=== PATIENT | male | born 1980 | race Two or more races ===

== ENCOUNTER 2018-07-12 11:52 | Emergency (ER) | payer BC, OTHER ==
--- NOTE | 2018-07-12 13:12 | ER Document Report ---
HPI - HPI Patient complains to provider of: bilateral ear pain and fullness Onset: Other - friday Pain Level: 4 Context: 38 yo male c/o left ear pain especially with movement since friday, now the right ear hurts. No recent URI. No fever. Associated Symptoms: None Exacerbated by: Denies Relieved by: Denies Similar symptoms previously: No Recently seen / treated by doctor: No - ROS ROS below otherwise negative: Yes Systems Reviewed and Negative: Yes All other systems reviewed and negative - CONSTITUTIONAL Constitutional: DENIES: Fever - hasnt checked, Chills - EENT EENT: REPORTS: Ear Pain. DENIES: Sore Throat, Eye problems - NEURO Neurology: REPORTS: Headache. DENIES: Weakness, Vision blurred, Dizzinesss / Vertigo - CARDIOVASCULAR Cardiovascular: DENIES: Chest pain - RESPIRATORY Respiratory: DENIES: Trouble Breathing, Coughing - GASTROINTESTINAL Gastrointestinal: DENIES: Abdominal Pain, Black / Bloody Stools - URINARY Urinary: DENIES: Dysuria, Urgency, Frequency - MUSCULOSKELETAL Musculoskeletal: DENIES: Extremity pain Past Medical History - General Information source: Parent - Social History Smoking Status: Unknown if Ever Smoked Chew tobacco use (# tins/day): No Frequency of alcohol use: Occasional Drug Abuse: None Lives with: Family Family History: Reviewed & Not Pertinent Patient has suicidal ideation: No Patient has homicidal ideation: No - Medical History Medical History: Negative Renal/ Medical History: Denies: Hx Peritoneal Dialysis Past Surgical History: Reports: Hx Cholecystectomy Vertical Provider Document - CONSTITUTIONAL Agree With Documented VS: Yes Exam Limitations: No Limitations General Appearance: No Apparent Distress - INFECTION CONTROL TRAVEL OUTSIDE OF THE [place] IN LAST 30 DAYS: No - HEENT HEENT: negative: Pharyngeal Erythema Notes: bilateral ear pain with pinna and tragus movement. both canals red with mild swelling, tenderness, wet ceruman, and possible exudate. mastoids non tender. No auricular nodes - NECK Neck: Supple. negative: Lymphadenopathy-Left, Lymphadenopathy-Right Course - Re-evaluation Re-evalutation: 07/12/18 ted inserted into canals and ciprodex used/ted expanded - Vital Signs Vital signs: Temp Pulse Resp BP Pulse Ox 98.4 F 66 14 136/96 H 96 07/12/18 12:07 07/12/18 12:07 07/12/18 12:07 07/12/18 12:07 07/12/18 12:07 Discharge - Discharge Clinical Impression: Bilateral otitis externa, Cerumen and exudate bilateral canals Condition: Good Disposition: HOME, SELF-CARE Instructions: Ciprofloxacin ([facility]), Using Ear Drops with a Wick ([facility]), Otitis Externa ([facility]), Steroid Medication Additional Instructions: Ear recheck in 2 days, return sooner if worse to the ER if external ears swell, increased pain, red skin, fever Referral to ears nose and throat doctor 4 drops of the eardrops in both of the ears twice a day for a week Warm compress to your ears Referrals: BRIANDA TREVIÑO DO [ASSOCIATE] - Follow up as needed
[2018-07-12] MEDS ORDERED: CIPROFLOXACIN HCL/DEXAMETH OTIC DROP 7.5 ML AU ONE (13:15)
[2018-07-12 14:02] VITALS: BP 146/102
== END 2018-07-12 14:03 | disposition home or self-care (01) ==
LOC: ER 11:52
DX: H60.93 Unspecified otitis externa, bilateral (principal); H61.23 Impacted cerumen, bilateral; H92.03 Otalgia, bilateral
CPT/HCPCS: 99282; J3490

== ENCOUNTER 2020-02-21 08:04 | Emergency (ER) | payer OTHER, BC ==
[2020-02-21 08:11] VITALS: BP 152/101
--- NOTE | 2020-02-21 08:57 | RADIOLOGY REPORT (SQ) ---
EXAM DESCRIPTION: ANKLE LEFT COMPLETE IMAGES COMPLETED DATE/TIME: 02/21/2020 8:45 am REASON FOR STUDY: twisted left ankle COMPARISON: None. NUMBER OF VIEWS: Three views. TECHNIQUE: AP, lateral, and oblique radiographic images acquired of the left ankle. LIMITATIONS: None. FINDINGS: MINERALIZATION: Normal. BONES: No acute fracture or dislocation. No worrisome bone lesions. JOINTS: No effusions. SOFT TISSUES: No soft tissue swelling. No foreign body. OTHER: No other significant finding. IMPRESSION: NEGATIVE STUDY OF THE LEFT ANKLE. NO RADIOGRAPHIC EVIDENCE OF ACUTE INJURY. TECHNICAL DOCUMENTATION: JOB ID: [id number] 2010 [employer]- All Rights Reserved Reading location - IP/workstation name: [email or web address]
--- NOTE | 2020-02-21 08:57 | RADIOLOGY REPORT (SQ) ---
EXAM DESCRIPTION: FOOT LEFT COMPLETE IMAGES COMPLETED DATE/TIME: 02/21/2020 8:45 am REASON FOR STUDY: pain to left foot COMPARISON: None. NUMBER OF VIEWS: Three views. TECHNIQUE: AP, lateral and oblique radiographic images acquired of the left foot. LIMITATIONS: None. FINDINGS: MINERALIZATION: Normal. BONES: No acute fracture or dislocation. No worrisome bone lesions. JOINTS: No effusions. SOFT TISSUES: No soft tissue swelling. No foreign body. OTHER: No other significant finding. IMPRESSION: NEGATIVE STUDY OF THE LEFT FOOT. NO RADIOGRAPHIC EVIDENCE OF ACUTE INJURY. TECHNICAL DOCUMENTATION: JOB ID: [id number] 2010 [employer]- All Rights Reserved Reading location - IP/workstation name: [email or web address]
[2020-02-21] MEDS ORDERED: IBUPROFEN 800 MG TABLET PO ONE (09:42)
--- NOTE | 2020-02-21 09:49 | ER Document Report ---
Entered by SALLIE AVERY SCRIBE 02/21/20 0848 Acting as scribe for:JL LOCK MD ED General - General Chief Complaint: Ankle Injury Stated Complaint: FOOT PAIN Information source: Patient Notes: This 40-year-old male presents to the emergency department complaining of left ankle pain that began yesterday. 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 Patient states that he was able to bear weight on the foot yesterday but today could not secondary to pain. Patient states that yesterday he tried icing and elevation. Patient states that he wanted to come to the emergency department just to be sure he did not "break a tendon". Patient explains the pain as located on his heel, 4/5 and worse with pressing his toes on the ground. Patient mentions chronic back pain. Patient denies chest pain, fever, chills and cough. Patient mentions that he has a pain in his right heel that he has been seeing a doctor at the [facility] for but states that it is not the same pain as in the left heel today. TRAVEL OUTSIDE OF THE [place] IN LAST 30 DAYS: No - Related Data Allergies/Adverse Reactions: No Known Allergies Allergy (Verified 07/12/18 11:56) Past Medical History - General Information source: Patient - Social History Smoking Status: Never Smoker Cigarette use (# per day): No Chew tobacco use (# tins/day): No Frequency of alcohol use: Rare Drug Abuse: None Lives with: Family Family History: Reviewed & Not Pertinent Patient has homicidal ideation: No - Medical History Medical History: Negative Past Surgical History: Reports: Hx Cholecystectomy Review of Systems - Review of Systems Constitutional: See HPI. denies: Chills, Fever EENT: No symptoms reported Cardiovascular: See HPI. denies: Chest pain Respiratory: See HPI. denies: Cough Gastrointestinal: No symptoms reported Genitourinary: No symptoms reported Male Genitourinary: No symptoms reported Musculoskeletal: See HPI, Back pain - Chronic, Other - left ankle pain Skin: No symptoms reported Hematologic/Lymphatic: No symptoms reported Neurological/Psychological: No symptoms reported -: Yes All other systems reviewed and negative Physical Exam - Vital signs Vitals: Temp 97.6 F 02/21/20 08:04 - Notes Notes: Physical Exam: General: Alert, appears well. HEENT: Normocephalic. Atraumatic. PERRL. Extraocular movements intact. Oropharynx clear. Neck: Supple. Non-tender. Respiratory: No respiratory distress. Clear and equal breath sounds bilaterally. Cardiovascular: Regular rate and rhythm. Abdominal: Obese. Non-tender. No distension. Normal Bowel Sounds. Back: No gross abnormalities. Extremities: Moves all four extremities. Upper extremities: Normal inspection. Normal ROM. Lower extremities: Plantar heel tenderness to palpation. No edema. Normal ROM. Neurological: Normal cognition. AAOx4. Normal speech. Psychological: Normal affect. Normal Mood. Skin: Warm. Dry. Normal color. Course - Re-evaluation Re-evalutation: 02/21/20 09:43 Patient resting comfortably not showing signs of distress at this time. - Vital Signs Vital signs: Temp Pulse Resp BP Pulse Ox 98.3 F 68 14 152/101 H 97 02/21/20 08:09 02/21/20 08:09 02/21/20 08:09 02/21/20 08:10 02/21/20 08:09 02/21/20 09:43 Vital signs shows systolic diastolic blood pressure elevation 152/101. - Diagnostic Test Radiology reviewed: Image reviewed, Reports reviewed Radiology results interpreted by me: 02/21/20 09:44 Radiology report shows left ankle and left foot without any evidence of any bony injuries or dislocations. Discharge - Discharge Clinical Impression: Sprain of left foot Condition: Stable Disposition: HOME, SELF-CARE Instructions: Andrew Wrap ([facility]), Ice & Elevation ([facility]), Sprain ([facility]), Use of Crutches ([facility]) Prescriptions: Ibuprofen [Motrin 800 mg Tablet] 800 mg PO Q8H PRN #30 tab PRN Reason: pain Forms: Elevated Blood Pressure I personally performed the services described in the documentation, reviewed and edited the documentation which was dictated to the scribe in my presence, and it accurately records my words and actions.
== END 2020-02-21 09:55 | disposition home or self-care (01) ==
LOC: ER 08:04
DX: S93.602A Unspecified sprain of left foot, initial encounter (principal); M25.572 Pain in left ankle and joints of left foot; X50.0XXA Overexertion from strenuous movement or load, initial encounter; Y93.67 Activity, basketball; M79.671 Pain in right foot; M54.9 Dorsalgia, unspecified; G89.29 Other chronic pain; I10 Essential (primary) hypertension
CPT/HCPCS: 99283